=== PATIENT | female | born 1955 | race African-American/Black ===

== ENCOUNTER 2020-10-19 10:11 | Emergency (ER) | payer MEDICARE, MEDICAID, SELFPAY ==
[2020-10-19 10:08] VITALS: BP 179/107; PULSE 86; RESP 18; TEMP 37.2; O2SAT 99
--- NOTE | 2020-10-19 10:44 | ED.EYEPROB ---
HPI - Eye Problem General Chief complaint: Eye Problems Stated complaint: R EYE RED AND SWOLLEN Time Seen by Provider: 10/19/20 10:31 Source: patient and old records reviewed Mode of arrival: EMS Limitations: dementia History of Present Illness HPI Narrative: This is a 65-year-old female that presents to the emergency department for right red eye redness noted this morning. Reports when she woke up she noted a small area of redness to the eye. This is worsened since. Denies any injury or trauma. Denies any pain to the eye. Denies fever, edema, or vision changes. Related Data Allergies Allergy/AdvReac Type Severity Reaction Status Date / Time No Known Allergies Allergy Verified 10/19/20 11:38 Review of Systems Review of Systems: CONSTITUTIONAL: Denies fever EYES: Reports redness. Denies visual changes, or discharge. All systems reviewed & are unremarkable except as noted in HPI and below PMFSH Past Medical History Medical History (Updated 10/19/20 @ 12:33 by Skylar Barron PA-C) History of dementia History of hyperlipidemia History of hypertension Exam Narrative: GENERAL: Well-appearing, well-nourished, and in no acute distress. HEAD: Normocephalic, atraumatic. EYES: PERRLA and EOMI. Right eye with large subconjunctival hemorrhage. Eyelid everted, no foreign bodies noted. No fluorescein stain uptake. Visual acuity 20/30 bilaterally EXTREMITIES: Normal range of motion. No edema. SKIN: Warm, dry, no rash. NEURO: No focal deficits. Alert and oriented x3. PSYCH: Normal mood and affect Course Vital Signs Vital signs: Vital Signs Temperature 98.9 F 10/19/20 10:08 Pulse Rate 86 10/19/20 10:08 Respiratory Rate 18 10/19/20 10:08 Blood Pressure 179/107 H 10/19/20 10:08 Pulse Oximetry 99 10/19/20 10:08 Temperature 98.9 F 10/19/20 10:08 Pulse Rate 86 10/19/20 10:08 Respiratory Rate 18 10/19/20 10:08 Blood Pressure 179/107 H 10/19/20 10:08 Pulse Oximetry 99 10/19/20 10:08 MDM - Eye Problem MDM Narrative Medical decision making narrative: Patient presents to the emergency department for a subconjunctival hemorrhage. No injuries or trauma to the eye. She does have normal visual acuity. No foreign bodies noted. No fluorescein stain uptake. She does have a good size subconjunctival hemorrhage in the right eye. Coagulation studies are normal. Instructed to follow-up with an assembler adjuster. She was given warnings to return to the ER Blood pressure noted to be elevated to the 170s systolic on arrival. She had not taken her blood pressure medication yet today. Was given this in the ER Lab Data Attestation: I reviewed the patient's lab results. Labs: Lab Results 10/19/20 Range/Units 11:22 PT 13.0 (11.1-14.7) Seconds INR 1.0 APTT 28.5 (22.3-36.8) SECONDS Critical Care Time Critical Care Time Critical Care Time: No Discharge Plan Discharge Clinical Impression: Subconjunctival hemorrhage Qualifiers: Laterality: right Qualified Code(s): H11.31 - Conjunctival hemorrhage, right eye Patient Disposition: [facility]As[facility] Living Condition: Stable Instructions: Subconjunctival Hemorrhage (ED) Additional Instructions: Return to the emergency department if you experience fever, redness and swelling of your eye, vision changes, vomiting, or any other symptoms that are concerning to you Follow-up with ophthalmology Follow-up/Referrals: UNKNOWN,DOCTOR [Primary Care Provider] - Unwin,Sesar Spears MD [Non-Staff] - 1 Day Stand Alone Forms: Care Home Discharge
[2020-10-19] MEDS: lisinopriL 20 MG TABLET PO (11:38)
[2020-10-19 11:46] LABS: Partial Thromboplastin Time 28.5 SECONDS (22.3-36.8)
[2020-10-19 15:46] VITALS: BP 178/65; PULSE 95; RESP 16; O2SAT 99
== END 2020-10-19 16:36 ==
PROVIDERS: Physician Assistant; Emergency Provider Emergency Medicine
DX: H11.31 Conjunctival hemorrhage, right eye (principal); F03.90 Unspecified dementia, unspecified severity, without behavioral disturbance, psychotic disturbance, mood disturbance, and anxiety; E78.5 Hyperlipidemia, unspecified; I10 Essential (primary) hypertension
CPT/HCPCS: 36415; 85610; 85730; 99283; A9270